=== PATIENT | male | born 1990 | race African-American/Black ===

== ENCOUNTER 2018-08-09 10:24 | Emergency (ER) | payer OTHER ==
[~2018-08-09] VITALS: Ht 175.3 cm; Wt 81.9 kg
[2018-08-09 10:25] VITALS: BP 143/69
[2018-08-09] MEDS ORDERED: IBUP200C33 PO (10:38)
[2018-08-09] MEDS ORDERED: IBUPROFEN 600 MG TAB PO ONE (10:45)
[2018-08-09] MEDS ORDERED: ACETAMINOPHEN 325 MG TAB PO ONE (10:45)
[2018-08-09 11:55] LABS: INFLUENZA A AMPLIFICATION NEGATIVE (NEGATIVE); INFLUENZA B AMPLIFICATION NEGATIVE (NEGATIVE)
== END 2018-08-09 13:37 | disposition home or self-care (01) ==
LOC: M ED 10:24
DX: B34.9 Viral infection, unspecified (principal)